=== PATIENT | female | born 1965 | race Caucasian/White ===

== ENCOUNTER 2022-02-08 18:36 | Emergency (ER) | payer OTHER, SELFPAY ==
--- NOTE | 2022-02-08 20:05 | EXP.UTC ---
Discharge Plan Disposition Patient Disposition: Home, Self-Care Condition: Good Prescriptions Prescriptions: New mupirocin 2 % ointment 1 applic topical TID 7 Days Qty: 1 0RF Referrals Follow up/Referrals: Baltazar Gardner MD [Primary Care Provider] - See instructions Activity Restrictions/Add. Instructions Additional Instructions/Restrictions: Keep the wounds clean and dry. Follow up with your regular doctor. Apply the topical antibiotics as directed. Make sure you stay in contact with the health department regarding the health of the dog. Watch the wounds for signs of worsening infection, such as worsening redness, drainage, swelling, etc. GO TO THE ER FOR ANY WORSENING SYMPTOMS Clinical Impressions Clinical Impression: Dog bite Instructions Patient Instructions: DI for Dog Bite Discharge ED Provider: [place] Scott [facility] General Stated complaint: [id number]@1200 dog bite right arm Time Seen by Provider: 02/08/22 20:05 History of Present Illness Provider Complaint: She states that she was bit by her neighbor's yellow lab dog yesterday. She states that the dog was playing with her and accidently bit her. Her skin is not broken but she does have several red [place] on her right lower leg. Her tetanus immunization is up to date. Related Data Previous Rx's Medication Instructions Recorded mupirocin 2 % topical ointment 1 applic topical TID 7 days #1 g 02/08/22 Allergies Allergy/AdvReac Type Severity Reaction Status Date / Time Penicillins Allergy Verified 02/08/22 20:10 [facility] Social History Smoking Status: Never smoker alcohol intake: never current occupational status: employed Travel in the last 8 weeks: None ROS Obtained: Yes All systems reviewed & no additional complaints except as documented Constitutional Constitutional: Reports system reviewed and no additional complaints, except as documented, Denies chills and Denies fever(s) Eyes Eyes: Denies eye discharge ENT Ears, Nose, Mouth, and Throat: Denies dysphagia, Denies sore throat and Denies throat swelling Cardiovascular Cardiovascular: Denies chest pain and Denies dyspnea Respiratory Respiratory: Denies chest congestion, Denies cough and Denies dyspnea Gastrointestinal Gastrointestingal: Denies abdominal pain, constipation, diarrhea, dysphagia, nausea or vomiting Musculoskeletal Musculoskeletal: Denies arthralgias Integumentary/Breasts Skin/Breast: Reports as per HPI Neurologic Neurologic: Denies paresthesias Allergic/Immunologic Allergic/Immunologic: Denies throat swelling Physical Exam General General appearance: alert and in no apparent distress Head Head exam: atraumatic, normocephalic and normal inspection Eye Eye exam: Present normal appearance, PERRL and EOMI ENT ENT exam: Present normal exam, normal oropharynx, mucous membranes moist, TM's normal bilaterally and normal external ear exam Neck Neck exam: Present normal inspection, full ROM and trachea midline; Absent meningismus or lymphadenopathy Chest Chest inspection: Present normal inspection and symmetric chest wall rise; Absent tenderness Respiratory Respiratory exam: Present normal lung sounds bilaterally; Absent respiratory distress Cardiovascular Cardiovascular exam: Present regular rate and normal rhythm; Absent JVD Abdominal Exam Abdominal exam: Present soft and normal bowel sounds; Absent distention, tenderness or guarding Extremities Exam Extremities exam: Present normal inspection, full ROM and normal capillary refill; Absent calf tenderness Back Exam Back exam: Present normal inspection; Absent tenderness Neurological Exam Neurological exam: Present alert and oriented X3 Psychiatric Psychiatric exam: Present normal affect and normal mood Skin Skin exam: Present intact and other (there are 2 superficial linear abrasions on her right anterior leg, no puncture wound. n
[2022-02-08 20:07] VITALS: BP 146/90; PULSE 87; RESP 16; TEMP 37.1; O2SAT 97; BMI 26.8
[2022-02-08 20:39] VITALS: BP 146/90; PULSE 87; RESP 16; TEMP 37.1
== END 2022-02-08 20:44 | disposition home or self-care (01) ==
PROVIDERS: Emergency Provider Nurse Practitioner Family; PCP Family Medicine
DX: S40.871A Other superficial bite of right upper arm, initial encounter (principal); W54.0XXA Bitten by dog, initial encounter
CPT/HCPCS: 99212; G0463

== ENCOUNTER → 2022-03-12 14:57 | Outpatient (CLI) | payer OTHER, SELFPAY ==
[2022-03-12 15:30] VITALS: PULSE 82; PULSE 85
--- NOTE | 2022-03-12 16:02 | XR_ITS ---
FINAL REPORT CLINICAL HISTORY: DDD FINDINGS: SACRUM/COCCYX 3 views were obtained. There is no acute fracture or dislocation. The joint spaces are intact. There are postoperative changes in the pelvis. IMPRESSION: No acute bony abnormality. Reviewed, Interpreted and Dictated by Noe Álvarez III, MD Transcribed by Mary Jane Aquino Authenticated and . [facility]
--- NOTE | 2022-03-12 16:04 | XR_ITS ---
FINAL REPORT CLINICAL HISTORY: DDD COMPARISON: August 12, 2011 FINDINGS: CERVICAL SPINE Five views were obtained. There is no acute fracture. There is no malalignment. There are moderate degenerative changes with multilevel disc osteophyte complexes that are worse since the prior exam. There is moderate right C5-6, mild right C6-7 and mild left C5-6 and C6-7 neural foraminal narrowing. There are postoperative changes in the anterior lower neck. IMPRESSION: Moderate degenerative change with multilevel disc osteophyte complexes, worse. Neural foraminal narrowing as above. Reviewed, Interpreted and Dictated by Noe Álvarez III, MD Transcribed by Mary Jane Aquino Authenticated and [facility]
[2022-03-12 18:01] LABS: Thyroid Stimulating Hormone < 0.02 uIU/mL (0.465-4.68)
[2022-03-12 18:24] LABS: Free T4 (Free Thyroxine) 1.57 ng/dl (0.78-2.19)
[2022-03-19 08:15] LABS: Triiodothyronine (T3) Free 3.5 pg/mL (2.0-4.4)
== END ==
PROVIDERS: Radiology Diagnostic Radiology; PCP Family Medicine
DX: E03.9 Hypothyroidism, unspecified (principal); J45.909 Unspecified asthma, uncomplicated; M50.30 Other cervical disc degeneration, unspecified cervical region; M46.1 Sacroiliitis, not elsewhere classified
CPT/HCPCS: 36415; 72050; 72220; 84436; 84439; 84443; 84481; 94060; 94640

== ENCOUNTER 2022-03-30 13:12 | Emergency (ER) | payer OTHER, SELFPAY ==
[2022-03-30 14:40] VITALS: BP 128/82; PULSE 91; RESP 18; TEMP 37.6; O2SAT 99; BMI 26.6
[2022-03-30 14:47] LABS: Apearance,Urine Clear (Clear); Bilirubin,Urine Negative (Negative); Blood, Urine Trace (Negative); Color,Urine Yellow (Yellow); Glucose,Urine (UA) Negative (Negative); Ketones,Urine Negative (Negative); PH,Urine 5.5 (5.0-8.5); Protein,Urine Negative (Negative); Specific Gravity, Urine >= 1.030 (1.005-1.030)
--- NOTE | 2022-03-30 14:47 | EXP.UTC ---
Discharge Plan Disposition Patient Disposition: Home, Self-Care Condition: Good Prescriptions Prescriptions: No Action mupirocin 2 % ointment 1 applic topical TID 7 Days Qty: 1 0RF levothyroxine 150 mcg tablet 150 mcg PO DAILY triamterene-hydrochlorothiazid 37.5-25 mg tablet 1 tab PO DAILY bupropion HCl 150 mg tablet extended release 24 hr 150 mg PO DAILY Trintellix 20 mg tablet 20 mg PO DAILY Referrals Follow up/Referrals: Provider,Referral, MD [Primary Care Provider] - See instructions Activity Restrictions/Add. Instructions Additional Instructions/Restrictions: Go to [facility] as discussed Further Care per [facility] Return if needed Clinical Impressions Clinical Impression: Abdominal pain Discharge ED Provider: Heather Christian [facility] [place] [facility] HPI General Stated complaint: Possible UTI, lower LT stomach pain Mode of Arrival: Ambulatory Source of Information: Patient Limitations: No Limitations Time Seen by Provider: 03/30/22 14:49 Description of Symptoms (Recalled from Triage Doc. by RN): pt comes in with c/o sore throat, body aches, lower abdominal cramping, mostly in lower abdomen. symptoms began last night. HEENT Symptoms (Recalled from RN notes): Yes Resp Symptoms (Recalled from RN notes): Yes Skin Symptoms (Recalled from RN notes): No MS Symptoms (Recalled from RN notes): No Functional Status (Recalled from RN notes): n/a History of Present Illness Provider Complaint: Patient states that last night she started having pain in her lower abdomen States that it kept her up most of the night States that she had a Tram done and has mesh inside her stomach around where she is having pain States that she isnt having any burning or anything with urination but was thinking she may have UTI so she wanted to get her urine checked and wanted tested for the flu and strep where her throat felt scratchy and she is having body aches and chills along with low grade fever. States that pain in abdomen worse when she bends or pushes on the area and pain is where her scar is from her TRAM surgery and feels swollen there Related Data Home Medications Medication Instructions Recorded Confirmed bupropion HCl 150 mg 24 hr tablet, 150 mg PO DAILY Anxiety 03/30/22 03/30/22 extended release levothyroxine 150 mcg tablet 150 mcg PO DAILY Supplement 03/30/22 03/30/22 triamterene 37.5 1 tab PO DAILY Heart disease 03/30/22 03/30/22 mg-hydrochlorothiazide 25 mg tablet vortioxetine 20 mg tablet 20 mg PO DAILY . 03/30/22 03/30/22 (Trintellix) Previous Rx's Medication Instructions Recorded mupirocin 2 % topical ointment 1 applic topical TID 7 days #1 g 02/08/22 Allergies Allergy/AdvReac Type Severity Reaction Status Date / Time Penicillins Allergy Verified 03/30/22 14:44 [id number] Reductase Allergy Verified 03/30/22 14:44 Inhibitor Worker's Comp Is this a Worker's Comp case?: No PFSH PFSH Social History Smoking Status: Never smoker alcohol intake: never current occupational status: employed Travel in the last 8 weeks: None ROS Obtained: Yes All systems reviewed & no additional complaints except as documented and Yes Systems reviewed as appropriate & no additional complaints except as documented Constitutional Constitutional: Reports system reviewed and no additional complaints, except as documented, Reports as per HPI, Reports body ache, Reports chills and Reports fever(s) ENT Ears, Nose, Mouth, and Throat: Reports system reviewed and no additional complaints, except as documented and Reports as per HPI Respiratory Respiratory: Reports system reviewed and no additional complaints, except as documented and Reports as per HPI Gastrointestinal Gastrointestingal: Reports system reviewed and no additional complaints, except as documented, as per HPI and abdominal pain Genitourinary Female Genitourinary: Repor
[2022-03-30 14:48] LABS: UTC Leukocyte Esterase,Urine Negative (Negative); UTC Nitrate,Urine Negative (Negative); Urobilinogen,Urine 0.2 EU/dl (0.2)
[2022-03-30 14:49] LABS: UTC Influenza A Antigen Negative (Negative); UTC Influenza B Antigen Negative (Negative); UTC Strep Screen (Rapid) Negative (Negative)
[2022-03-30 15:13] VITALS: BP 128/82; PULSE 91; RESP 18; TEMP 37.6
== END 2022-03-30 15:16 | disposition home or self-care (01) ==
PROVIDERS: Emergency Provider Nurse Practitioner
DX: R10.9 Unspecified abdominal pain (principal)
CPT/HCPCS: 81003; 87804; 87880; 99212; G0463